=== PATIENT | male | born 1930 | race Caucasian/White ===

== ENCOUNTER 2016-08-18 14:45 | Emergency (ER) | payer MEDICARE, OTHER ==
[~2016-08-18] VITALS: Ht 172.7 cm; Wt 87.7 kg
[2016-08-18 14:56] VITALS: BP 191/93; PULSE 74; RESP 16; O2SAT 96
--- NOTE | 2016-08-18 15:17 | ED.REPORT ---
HPI-Extremity Problem Upper Date of Service August 18, 2016 ED Provider: The patient is an 85 year old male who presents to the emergency department complaining of a left thumb injury that occurred about 3 hours ago. The patient was initially seen at urgent care and sent here for further evaluation. The patient states he was using a circular saw at home when he lost control and it cut his left thumb. His pain is well controlled at this time. He any other injuries or trauma. His tetanus is not up to date. He takes 1 aspirin each day, no other blood thinners. Nursing Notes Stated Complaint: CUT LEFT THUMB Chief Complaint: Extremity Trauma Nursing Notes Reviewed: Yes Allergies: Coded Allergies: egg (Verified Allergy, Unknown, 08/18/16) General Time Seen by MD: 15:16 Chief Complaint Finger injury left 1 Hx Obtained From: Patient, Spouse Arrived By: Walk-in Onset Occurred: 1 - 4 hours ago Symptom Duration: Since onset Location: : Finger left 1 Quality: Painful Severity: Current: Mild Severity: Maximum: Mild Immunizations: Tetanus not up to date Recent Healthcare: No recent doctor visit, No recent hospitalization Similar Sx Previous: No Past Medical History Family History Noncontributory Smoking History Never Smoker Social History Other Social History: Good social support, , Local resident Ambulatory Status Independent Review of Systems Review of Systems Note: +left thumb laceration Musculoskeletal: Reports: Extremity pain Complete sys rev & neg: except as marked. Physical Exam Initial Vital Signs Vital Signs (First) Date Time Temp Pulse Resp B/P Pulse Ox O2 Delivery O2 Flow Rate FiO2 08/18/16 14:56 36.4 74 16 191/93 96 Room Air Initial VS: Reviewed Head / Eyes: Atraumatic, Normocephalic, PERRL ENT: Mucous membranes moist, Conjunctiva normal, No scleral icterus Neck: Supple, Non-tender, Full range of motion Respiratory: Breath sounds normal, Clear to auscultation, No respiratory distress Cardiovascular: Regular rate & rhythm, Heart sounds normal, Intact distal pulses Abdomen / GI: Soft, Non-tender, No guarding, No rebound, No distention Lymphatic: No lymphadenopathy Lower Extremities: Vascular intact, Neuro intact, No swelling, No tenderness Skin: Warm, Dry, No cyanosis Neurologic: Alert, Oriented, Nonfocal Psychiatric: Mood/affect normal, Behavior normal, Normal thought content General/Constitutional: Awake, Alert Wrist / Hand: Neurologic intact The patient has a large 2 x 3.5 cm flap over the palmar aspect of the distal first finger on the left hand. It does not involve the nail. The laceration is macerated and stellate. No bone visible when flap was retracted Interpretation & Diagnostics X-Ray Interpretation Xray Interpretation: FROM URGENT CARE: No fracture. No radiopaque foreign body. Study Performed: Left finger Interpretation / Wet Read by: Interpret - Radiologist Procedures Laceration Management Laceration Management: Trimmed off some of skin flap. Time: 17:42 Procedure Performed by: ED physician Consent / Setup / Site Prep: Consent from patient, Time-out performed, Hand hygiene observed Location of Wound: The patient has a large 2 x 3.5 cm flap over the palmar aspect of the distal first finger on the left hand. It does not involve the nail. The laceration is macerated and stellate. Local Anesthesia: Lidocaine 1% Digital Block: Yes Digit Involved: Thumb left Wound Preparation: Hibiclens - Chlorhexidine, Normal saline Irrigation: Copious Foreign Body Explore / Removal: Explored for foreign body Undermining / Margins: Flaps aligned Repair Skin: Nylon (5-0) # Sutures - Skin: 10 (loosely approximated) Post-Procedure / Complications: Antibiotic oint applied, Dressing applied, No complications, Condition improved, Tolerated procedure well, Patient stable Re-Eval/Medical Decision Med Decision/Clinical Course 85-year-old male with large laceration of the thumb from circular saw. No fracture seen on x-ray and no foreign body on my exam. Bone was not visible when flap was retracted. Given the extent of maceration several parts of the flap had to be trimmed. Initially the flap appeared somewhat dusky but after suturing the wound color returned somewhat. Patient will follow-up with orthopedics next week. I put him on Keflex to prevent infection Source of Hx: Old records, Family Re-Evaluation/Progress : Time of Eval: 16:10 Re-Evaluation/Progress Note: Discussed plan for laceration repair and discharge on antibiotics with outpatient followup. Consultation : Referral / Consult Name: Aaron Guy DO Consulted With: Orthopedic Call Returned at: 15:59 Note: He recommends loosely closing the flap, send the patient home on antibiotics with followup in their clinic. Counseled Regarding: Diagnosis, Need for follow-up, When/why to return to ED Discharge & Departure Impression: Primary Impression: Thumb laceration Encounter type: initial encounter Laterality: left Qualified Code: S61.012A - Laceration without foreign body of left thumb without damage to nail , initial encounter Disposition: Home Discharge Condition All VS Reviewed: Yes Condition: Stable Patient Instructions: Laceration (GEN) Additional Instructions: Thank you for entrusting us with your care today. There is no evidence of any fractures or foreign bodies. You will need to have these removed in 14 days. Take the antibiotic as prescribed. Followup with an radiosonde specialist early next week. We have given you a referral to Dr. Guy. Call on Sunday to schedule the appointment. Seek care sooner for increased pain, redness or swelling, pus-like drainage, fever, chills, or any other new or worsening symptoms. Referrals: Aaron Guy Attestation Portions of this note were transcribed by Tatiana Qureshi. I, Dr. Duvall personally performed the history, physical exam and medical decision-making; I reviewed and confirmed the accuracy of the information in the transcribed note. Signed by: Gomez Tsai, 08/18/2016 at 1910. Ruben Duvall DO August 18, 2016 15:17 Tatiana Qureshi August 18, 2016 15:54
[2016-08-18] MEDS ORDERED: TdaP Vaccine 0.5 mL Inj IM ONE (16:00)
== END 2016-08-18 18:45 | disposition home or self-care (01) ==
LOC: SED 14:45
DX: S61.012A Laceration without foreign body of left thumb without damage to nail, initial encounter (principal); W31.2XXA Contact with powered woodworking and forming machines, initial encounter; Y93.89 Activity, other specified; Y92.019 Unspecified place in single-family (private) house as the place of occurrence of the external cause; Y99.8 Other external cause status; Z23 Encounter for immunization; Z91.012 Allergy to eggs